=== PATIENT | female | born 1985 ===

== ENCOUNTER 2018-05-14 23:47 | Emergency (ER) | payer OTHER ==
[2018-05-15] MEDS ORDERED: LORazepam TAB(*) 1 MG PO ONE (00:11)
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
[2018-05-15 01:02] VITALS: BP 00/00
== END 2018-05-15 00:56 ==
LOC: ED 23:47
DX: F41.9 Anxiety disorder, unspecified (principal); Z88.1 Allergy status to other antibiotic agents; F17.200 Nicotine dependence, unspecified, uncomplicated
CPT/HCPCS: 99281; A9270-GY